=== PATIENT | female | born 1935 | race Caucasian/White ===

== ENCOUNTER 2019-07-11 12:09 | Emergency (ER) | payer OTHER ==
[~2019-07-11] VITALS: Ht 142.2 cm; Wt 47.2 kg
[~2019-07-11 12:09] MED LIST: ARICEPT5 MG PO; DOLOGESIC CAPSU1 CAP PO; PERCOCET 5/3251 TAB PO
== END 2019-07-11 16:14 | disposition home or self-care (01) ==
LOC: ER 12:09
DX: S32.592D Other specified fracture of left pubis, subsequent encounter for fracture with routine healing (principal); S80.02XD Contusion of left knee, subsequent encounter; S70.02XD Contusion of left hip, subsequent encounter; W18.39XD Other fall on same level, subsequent encounter

== ENCOUNTER 2021-09-26 18:55 | Emergency (ER) | payer OTHER ==
[~2021-09-26] VITALS: Ht 139.7 cm; Wt 78.0 kg
[2021-09-26] MEDS ORDERED: CARVEDILOL ER40 MG (19:08)
[2021-09-26] MEDS ORDERED: COZAAR25 MG (19:08)
== END 2021-09-26 23:38 | disposition home or self-care (01) ==
LOC: ER 18:55
DX: R10.84 Generalized abdominal pain (principal); K59.00 Constipation, unspecified; Z88.0 Allergy status to penicillin; Z88.6 Allergy status to analgesic agent

== ENCOUNTER 2022-09-12 14:22 | Emergency (ER) | payer OTHER ==
[~2022-09-12] VITALS: Ht 162.6 cm; Wt 54.4 kg
[~2022-09-12 14:22] MED LIST changes: +CARVEDILOL ER40 MG; +COZAAR25 MG
== END 2022-09-12 22:45 | disposition expired ==
LOC: ER 14:22
DX: J18.9 Pneumonia, unspecified organism (principal); Z88.6 Allergy status to analgesic agent; Z88.0 Allergy status to penicillin; Z20.822 Contact with and (suspected) exposure to COVID-19; J10.1 Influenza due to other identified influenza virus with other respiratory manifestations; N39.0 Urinary tract infection, site not specified; B96.20 Unspecified Escherichia coli [E. coli] as the cause of diseases classified elsewhere; Z16.11 Resistance to penicillins